=== PATIENT | male | born 1970 | race Caucasian/White ===

== ENCOUNTER → 2023-03-03 16:21 | Outpatient (AMB) | payer BC, SELFPAY ==
--- NOTE | 2023-03-03 16:19 | AM.OFFWIN_ITS ---
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 Pt states this anglin ppened on 02/28/23. Patient Tobacco Use Status: Never used Tobacco HPI HPI Comments History of Present Illness Details The patient presents to urgent care for evaluation of left foot pain and swelling. He states that on Wednesday, 3 days ago he was bit by his friend's cat. He did not have any issues until yesterday when it started to swell up and become painful. Patient unsure of his tetanus is up-to-date. [facility] Social History Patient Tobacco Use Status: Never used Tobacco Review of Systems Eyes Reports no additional complaints ENT Reports Normal hearing present and Denies dysphagia Card Denies dyspnea and Denies slow heart rate Resp Denies cough and Denies dyspnea GI Denies dysphagia and Denies heartburn Denies dysuria Musc Denies tingling Skin/Breast Reports lesions, Denies skin ulcer and Denies unusual bruising Neuro Reports Normal hearing present, Denies Sensory deficit (Neuro), Denies tingling and Denies paresthesias Physical Exam Vital Signs: Last Vital Signs Temp 97.2 F 03/03/23 16:24 Pulse 120 H 03/03/23 16:24 BP 138/62 03/03/23 16:24 Pulse Ox 96 03/03/23 16:24 Oxygen Delivery Method Room Air 03/03/23 16:24 Const General: healthy appearing and no acute distress Resp Effort & Inspection: normal respiratory effort and able to speak in complete sentences Skin Other: Left foot dorsum: Moderate soft tissue swelling erythema and edema. Tender to palpation. Puncture site in the central portion of his foot. No purulent drainage. No area of fluctuance. Neuro Cranial nerves: Yes Normal hearing present Sensory Exam: No Sensory deficit (Neuro) Assessment & Plan Assessment & Plan (1) Cat bite: Code(s): W55.01XA - Bitten by cat, initial encounter (2) Cellulitis: Code(s): L03.90 - Cellulitis, unspecified Plan Cat bite resulting in cellulitis of the left foot. Patient will be started on Augmentin. Recommend follow-up to PCP. Recommend Epsom salts. Tylenol and ibuprofen for pain Tetanus updated today Medications: New amoxicillin-pot clavulanate 875-125 mg 1 tab PO BID 14 tabs 0RF Coding Level of Care Code Est Pt Level 3 (23559) Diagnoses Cat bite W55.01XA Cellulitis L03.90
[2023-03-03 16:24] VITALS: BP 138/62; PULSE 120; TEMP 36.2; O2SAT 96
== END ==
PROVIDERS: PCP Internal Medicine; Visit Provider Emergency Medicine
DX: L03.90 Cellulitis, unspecified (principal); W55.01XA Bitten by cat, initial encounter; Z23 Encounter for immunization
CPT/HCPCS: 90471; 90715; 99213